=== PATIENT | female | born 1975 | race Caucasian/White ===

== ENCOUNTER 2017-06-17 11:36 | Emergency (ER) | payer SELFPAY ==
[~2017-06-17] VITALS: Ht 154.9 cm; Wt 62.7 kg
[2017-06-17 11:43] VITALS: Ht 154.9 cm; Wt 62.7 kg
[2017-06-17] MEDS ORDERED: IBUP200T80 PO (12:24)
[2017-06-17] MEDS ORDERED: ASPI-390 PO (12:24)
[2017-06-17] MEDS ORDERED: ONDANSETRON INJ 2 MG/ML 2 ML VIAL IV STA (12:30)
[2017-06-17] MEDS ORDERED: SODIUM CHLORIDE 0.9% 1000ML 1,000 ML IV STA (12:30)
[2017-06-17 12:40] LABS: URINE APPEARANCE CLEAR (CLEAR); URINE BILIRUBIN NEG (NEG); URINE COLOR YELLOW; URINE EPITHELIAL CELL AUTO >30 /lpf (0-5); URINE NITRITE NEG (NEG); URINE PH 6.5 (4.5-7.5); URINE SPECIFIC GRAVITY 1.018 (1.000-1.030); UROBILINOGEN NEG (NEG); ZZUR CULT IF INDIC CLEAN CATCH NO
[2017-06-17 12:43] LABS: MANUAL MICROSCOPIC REQUIRED? NO; REVIEW REQ? NO
[2017-06-17] MEDS ORDERED: MoRPHine SULFATE 4 MG/ML 1 ML CARP\\VIAL IV STA (13:02)
[2017-06-17] MEDS ORDERED: PROMETHAZINE HCL INJ 25 MG in SODIUM CHLORIDE 0.9% 50ML 50 ML IV STA (13:02)
[2017-06-17] MEDS ORDERED: MoRPHine SULFATE 4 MG/ML 1 ML CARP\\VIAL IV PRN (13:15)
[2017-06-17 13:24] LABS: BASO % 0.7 %; BASO ABS # 0.06 K/uL (0-0.2); COMPLETE YES; EOS % 0.4 %; HEMATOCRIT 41.6 % (37-47); IG% 0.1 %; LYMPH % 27.6 %; MEAN CELL VOLUME 88.3 fL (80-100); MEAN CORPUSCULAR HEMOGLOBIN 29.3 pg (25-34); MEAN CORPUSCULAR HGB CONC 33.2 g/dl (32-36); MONO % 10.3 %; NEUT % 60.9 %; PLATELET COUNT 215 K/uL (130-400); RED BLOOD COUNT 4.71 M/uL (4.2-5.4); WHITE BLOOD COUNT 8.32 K/uL (4.8-10.8)
--- NOTE | 2017-06-17 13:37 | DIAGNOSTIC IMAGING REPORT ---
ABD/PELVIS NO IV OR ORAL CONT CT DOSE: 373.67 mGy.cm HISTORY: Pain LOWER ABD PAIN/URINARY SYMPTOMS - ORAL/IV DYE ALLERGIES TECHNIQUE: Multiaxial CT images of the abdomen and pelvis were performed without contrast. A dose lowering technique was utilized adhering to the principles of ALARA. COMPARISON STUDY: None. FINDINGS: The lung bases are clear. The unenhanced liver, spleen, gallbladder, pancreas, kidneys, and adrenal glands are within normal limits.. The pelvic organs are unremarkable. No suspicious lytic or blastic osseous lesions. Bowel pattern is nonobstructive. No evidence for an obstructing urinary tract calculus. Prior appendectomy. Mild chronic sigmoid diverticulosis. Artifact versus slight colonic wall edema IMPRESSION: 1. Mild chronic sigmoid diverticulosis. 2. No evidence for acute diverticulitis. 3. Artifact due to lack of distention versus mild nonspecific colitis. The above report was generated using voice recognition software. It may contain grammatical, syntax or spelling errors. Electronically signed by: Td Darnell M.D. 06/17/2017 1:36 PM Dictated Date/Time: 06/17/2017 1:34 PM
[2017-06-17 13:49] LABS: ALT/SGPT 19 U/L (12-78); BLOOD UREA NITROGEN 10 mg/dl (7-18); BUN/CREATININE RATIO 12.8 (10-20); CALCIUM 9.2 mg/dl (8.5-10.1); CARBON DIOXIDE 22 mmol/L (21-32); CHLORIDE 109 mmol/L (98-107); CREATININE 0.76 mg/dl (0.60-1.20); GLUCOSE 103 mg/dl (70-99); POTASSIUM 3.4 mmol/L (3.5-5.1); SODIUM 140 mmol/L (136-145)
[2017-06-17 13:51] LABS: ALKALINE PHOSPHATASE 91 U/L (45-117); AST/SGOT 14 U/L (15-37)
[2017-06-17 15:36] VITALS: BP 128/80; PULSE 60; TEMP 36.8; O2SAT 95
--- NOTE | 2017-06-17 22:32 | EMERGENCY ROOM VISIT NOTE ---
History First contact with patient: 12:01 Chief Complaint: UNABLE TO VOID Stated Complaint: UNABLE TO VOID Nursing Triage Summary: Pt presents wtih c/o urinary retention, lower back pain, n/v x 3 days. Pt states she has never had similar symptoms. Has a sense of urinary urgency, voids small amounts. History of Present Illness The patient is a 42 year old female who presents to the Emergency Room with complaints of lower abdominal and back pain. The patient reports that she has developed nausea and vomiting over the past 3 days. She also reports urinary frequency, urgency and dysuria. The patient then admits that she has an extensive history of multiple abdominal surgeries. She has had an appendectomy , cholecystectomy, total abdominal hysterectomy and multiple surgeries for adhesions. OB history is A3. She also has a history of von-Willebrand's disease, and had active bleeding after her first delivery. Since wet caused her to have her total abdominal hysterectomy. 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 Her last laparoscopic surgery for adhesions was in 2013. 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 He rates her discomfort a 10 out of 10. Review of Systems HEENT: Denies dizziness, visual problems, hearing loss, tinnitus. Denies difficulty swallowing or oral lesions. PULMONARY: Denies cough, shortness of breath, sputum production or hemoptysis. CARDIOVASCULAR: Denies chest pain, palpitations, dyspnea on exertion, orthopnea or peripheral edema. GASTROINTESTINAL: See history of present illness. GENITOURINARY: See history of present illness. NEUROLOGIC: Denies history of epilepsy, CVA, TIA or chronic headaches. MUSCULOSKELETAL: Denies history of joint tenderness/swelling. SKIN: Denies rashes or lesions. PSYCHIATRIC: Denies history of depression or mental illness. ENDOCRINE: Denies history of diabetes or thyroid disorders. Past Medical/Surgical History Medical Problems: (1) Lower abdominal adhesions (2) Von Willebrands disease Surgical Problems: (1) History of appendectomy (2) History of total abdominal hysterectomy Family History Unremarkable Social History Smoking Status: Current Every Day Smoker Alcohol Use: occasionally Marital Status: Occupation Status: employed Current/Historical Medications Scheduled PRN Sbkccad-Qihtkvacofvnj-Qwgbgwgc (Excedrin Migraine), 1 TAB PO BID PRN for Pain Ibuprofen (Ibu-200), 1 TAB PO BID PRN for Pain Physical Exam Vital Signs Date Time Temp Pulse Resp B/P (MAP) Pulse Ox O2 Delivery O2 Flow Rate FiO2 06/17/17 15:36 36.8 60 20 128/80 95 06/17/17 14:58 60 20 128/80 95 Room Air 06/17/17 13:39 74 20 137/89 96 Room Air 06/17/17 11:43 36.8 87 20 140/103 99 Room Air Physical Exam CONSTITUTIONAL: Healthy and well nourished. Alert and oriented X 3 with positive affect. She does not appear in any acute distress, nor does she appear acutely or toxicErin Shani MEDEIROS HEENT: Normocephalic, atraumatic. Pupils equal, round and reactive. Ears and nares are clear. No scleral icterus or conjunctival injection/pallor. NECK: Full active range of motion without discomfort. RESPIRATORY: Clear to auscultation bilaterally with no wheezing, crackles, rhonchi or stridor. CARDIOVASCULAR: Regular rate and rhythm with no murmurs, rubs or gallops. GASTROINTESTINAL: Bowel sounds present in all quadrants. Patient has mild suprapubic tenderness to palpation. Negative CVA tenderness. No rigidity, guarding or rebound. MUSCULOSKELETAL: Full range of motion of all joints without discomfort. INTEGUMENTARY: No rash or other significant dermatologic conditions noted. HEMATOLOGIC: No ecchymosis or petechiae. NEUROLOGIC: No focal neurologic deficits noted. Medical Decision & Procedures ER Provider Diagnostic Interpretation: Noncontrast CT of the abdomen and pelvis does not show any obvious ureteral calculi, obstructions or other acute findings given limitations without oral or IV contrast. A mild nonspecific colitis may be suggested. Radiologist report is as follows: ABD/PELVIS NO IV OR ORAL CONT CT DOSE: 373.67 mGy.cm HISTORY: Pain LOWER ABD PAIN/URINARY SYMPTOMS - ORAL/IV DYE ALLERGIES TECHNIQUE: Multiaxial CT images of the abdomen and pelvis were performed without contrast. A dose lowering technique was utilized adhering to the principles of ALARA. COMPARISON STUDY: None. FINDINGS: The lung bases are clear. The unenhanced liver, spleen, gallbladder, pancreas, kidneys, and adrenal glands are within normal limits.. The pelvic organs are unremarkable. No suspicious lytic or blastic osseous lesions. Bowel pattern is nonobstructive. No evidence for an obstructing urinary tract calculus. Prior appendectomy. Mild chronic sigmoid diverticulosis. Artifact versus slight colonic wall edema IMPRESSION: 1. Mild chronic sigmoid diverticulosis. 2. No evidence for acute diverticulitis. 3. Artifact due to lack of distention versus mild nonspecific colitis. Laboratory Results 06/17/17 12:05 Red Blood Count 4.71, Mean Corpuscular Volume 88.3, Mean Corpuscular Hemoglobin 29.3, Mean Corpuscular Hemoglobin Concent 33.2, Mean Platelet Volume 10.0, Neutrophils (%) (Auto) 60.9, Lymphocytes (%) (Auto) 27.6, Monocytes (%) (Auto) 10.3, Eosinophils (%) (Auto) 0.4, Basophils (%) (Auto) 0.7, Neutrophils # (Auto ) 5.06, Lymphocytes # (Auto) 2.30, Monocytes # (Auto) 0.86, Eosinophils # (Auto ) 0.03, Basophils # (Auto) 0.06 06/17/17 12:05 Test 06/17/17 11:50 06/17/17 12:05 06/17/17 14:43 Urine Color YELLOW Urine Appearance CLEAR (CLEAR) Urine pH 6.5 (4.5-7.5) Urine Specific [place] 1.018 (1.000-1.030) Urine Protein NEG (NEG) Urine Glucose (UA) NEG (NEG) Urine Ketones NEG (NEG) Urine Occult Blood 2+ (NEG) Urine Nitrite NEG (NEG) Urine Bilirubin NEG (NEG) Urine Urobilinogen NEG (NEG) Urine Leukocyte Esterase NEG (NEG) Urine WBC (Auto) 1-5 /hpf (0-5) Urine RBC (Auto) 10-30 /hpf (0-4) Urine Hyaline Casts (Auto) 1-5 /lpf (0-5) Urine Epithelial Cells (Auto) >30 /lpf (0-5) Urine Bacteria (Auto) NEG (NEG) White Blood Count 8.32 K/uL (4.8-10.8) Red Blood Count 4.71 M/uL (4.2-5.4) Hemoglobin 13.8 g/dL (12.0-16.0) Hematocrit 41.6 % (37-47) Mean Corpuscular Volume 88.3 fL (80-100) Mean Corpuscular Hemoglobin 29.3 pg (25-34) Mean Corpuscular Hemoglobin Concent 33.2 g/dl (32-36) Platelet Count 215 K/uL (130-400) Mean Platelet Volume 10.0 fL (7.4-10.4) Neutrophils (%) (Auto) 60.9 % Lymphocytes (%) (Auto) 27.6 % Monocytes (%) (Auto) 10.3 % Eosinophils (%) (Auto) 0.4 % Basophils (%) (Auto) 0.7 % Neutrophils # (Auto) 5.06 K/uL (1.4-6.5) Lymphocytes # (Auto) 2.30 K/uL (1.2-3.4) Monocytes # (Auto) 0.86 K/uL (0.11-0.59) Eosinophils # (Auto) 0.03 K/uL (0-0.5) Basophils # (Auto) 0.06 K/uL (0-0.2) RDW Standard Deviation 45.8 fL (36.4-46.3) RDW Coefficient of Variation 14.1 % (11.5-14.5) Immature Granulocyte % (Auto) 0.1 % Immature Granulocyte # (Auto) 0.01 K/uL (0.00-0.02) Anion Gap 9.0 mmol/L (3-11) Est Creatinine Clear Calc Drug Dose 82.6 ml/min Estimated GFR () 112.9 Estimated GFR (Non- 97.4 BUN/Creatinine Ratio 12.8 (10-20) Calcium Level 9.2 mg/dl (8.5-10.1) Total Bilirubin 0.2 mg/dl (0.2-1) Direct Bilirubin < 0.1 mg/dl (0-0.2) Aspartate Amino Transf (AST/SGOT) 14 U/L (15-37) Alanine Aminotransferase (ALT/SGPT) 19 U/L (12-78) Alkaline Phosphatase 91 U/L (45-117) Total Protein 7.4 gm/dl (6.4-8.2) Albumin 4.0 gm/dl (3.4-5.0) Lipase 128 U/L (73-393) Lactic Acid Level 0.5 mmol/L (0.4-2.0) The above labs were reviewed and were grossly normal. Urinalysis shows hematuria without signs of infection. Lactate was normal. LFTs and lipase are normal. Medications Administered Medications (Trade) Dose Ordered Sig/Marcin Route Start Time Stop Time Status Last Admin Dose Admin Promethazine HCl 25 mg/Sodium Chloride 51 ml @ 204 mls/hr NOW STAT IV 06/17/17 13:02 06/17/17 13:16 DC 06/17/17 13:44 204 MLS/HR Morphine Sulfate (MoRPHine SULFATE INJ) 4 mg NOW STAT IV 06/17/17 13:02 06/17/17 13:07 DC 06/17/17 13:44 4 MG ED Course Patient history and physical exam were performed. Nurse's notes were reviewed. Vital signs were reviewed, showing a blood pressure 140/103. The patient is afebrile and not tachycardic. O2 saturation is 99% on room air. The patient reports that she has had multiple procedures in the past, as concern for redeveloping adhesions. She is concerned because of difficulty with urination. An initial bladder scan was performed after the patient provided urine for further studies. Bladder scan showed a 115 mL residual volume. IV access was established, and labs were drawn. The patient was hydrated with normal saline, and was administered IV morphine and Phenergan for pain and nausea. Labs were reviewed and were normal. Urinalysis is not suggestive of infection. Imaging studies were discussed with the patient. She reports a severe allergy to shellfish, and has had rash and hives with prior IV dye studies. For this reason, a noncontrast study was ordered and was normal. The case was further discussed with Dr. Ortiz, ED attending physician, who agrees with workup and outpatient plan of care. Findings were discussed with the patient. The patient then became very upset, reporting that she hates to see doctors because they can never give her a straight answer as to what is causing her problems. I explained to the patient what her laboratory and imaging studies have ruled out. She again voiced frustration because of her difficulty with urination. I explained that she was able to provide a urine sample, and has no residual volume is suggest urinary tract obstruction. I also explained that her urinalysis does not show any evidence for infection, and CT studies do not show any evidence for ureteral calculi or other acute intra-abdominal findings. The patient reports that she would rather just leave. I did suggest that she follow-up with a urologist since she is having urinary symptoms. She refused pelvic exam, and denies any symptoms consistent with yeast infection or other vaginal skin problems. She rated her discomfort a 6 out of 10 at the conclusion of my exam. Medical Decision See previous section. At this point, I do not feel that urgent urology consultation is warranted. The patient is status post appendectomy. She has a known history of intra-abdominal adhesions, and could certainly be experiencing discomfort from adhesions. I am uncertain why the patient is having urinary tract symptoms given that her workup today is unremarkable. She refused a pelvic exam to rule out other possible etiologies for her discomfort. The patient is afebrile and has no leukocytosis to suggest overwhelming infectious etiology. [place] Drug Monitoring Program Search Results: patient reviewed within database, no issues identified Medication Reconcilliation Current Medication List: was personally reviewed by me Blood Pressure Screening Patient's blood pressure: Normal blood pressure Impression Primary Impression: Lower abdominal pain of unknown etiology Additional Impression: Lower abdominal adhesions Departure Information Referrals No Doctor, Assigned (PCP) Patient Instructions My [facility] Problem Qualifiers
== END 2017-06-17 15:39 | disposition home or self-care (01) ==
LOC: C.EDB 11:39
DX: R10.30 Lower abdominal pain, unspecified (principal); K66.0 Peritoneal adhesions (postprocedural) (postinfection); R30.0 Dysuria; D68.0 Von Willebrand disease; Z90.49 Acquired absence of other specified parts of digestive tract; Z90.710 Acquired absence of both cervix and uterus; F17.210 Nicotine dependence, cigarettes, uncomplicated